=== PATIENT | female | born 1980 | race Caucasian/White ===

== ENCOUNTER 2021-10-16 15:59 | Emergency (ER) | payer OTHER ==
[~2021-10-16] VITALS: Ht 160 cm; Wt 77.3 kg
[2021-10-16] MEDS ORDERED: NALOXONE HCL 1 MG/ML SYRINGE IVP ONE (16:15)
[2021-10-16] MEDS ORDERED: RINGERS SOLUTION,LACTATED 1,000 ML IV ONE (16:15)
[2021-10-16 16:30] LABS: BASOPHILS % (AUTO) 0.5 % (0.0-2.0); EOSINOPHILS % (AUTO) 3.4 % (1.0-6.0); HEMATOCRIT 37.7 % (36-46); HEMOGLOBIN 11.8 g/dL (12.0-16.0); LYMPHOCYTES # (AUTO) 2.6 K/uL (1.0-4.8); LYMPHOCYTES % (AUTO) 34.7 % (22.0-44.0); MEAN CORPUSCULAR HEMOGLOBIN 21.2 pg (26.0-34.0); MEAN CORPUSCULAR HGB CONC 31.5 G/dL (31.0-37.0); MEAN CORPUSCULAR VOLUME 67 fL (80-100); MONOCYTES # (AUTO) 0.8 K/uL (0.1-1.0); NEUTROPHILS # (AUTO) 3.9 K/uL (1.8-7.7); NEUTROPHILS % (AUTO) 51.4 % (40.0-70.0); PLATELET COUNT (AUTO) 295 K/uL (150-450); RED BLOOD CELL COUNT(AUTO) 5.59 MIL/uL (4.00-5.20); RED CELL DISTRIBUTION WIDTH 16.6 % (11.5-14.5)
[2021-10-16] MEDS ORDERED: ONDANSETRON HCL 4 MG/2 ML VIAL IVP ONE (16:30)
[2021-10-16 16:39] LABS: ANION GAP 11 mmol/L (8-16); CALCIUM, TOTAL 8.9 mg/dL (8.8-10.5); CARBON DIOXIDE 24 mmol/L (22-29); CHLORIDE 105 mmol/L (98-107); CREATININE 0.98 mg/dL (0.60-1.30); GLOMERULAR FILTR. RATE CALC > 60 mL/min (>60); GLUCOSE,RANDOM 194 mg/dL (70-110); POTASSIUM 3.1 mmol/L (3.5-5.1); SODIUM SERUM 140 mmol/L (136-145); UREA NITROGEN, BLOOD 14 mg/dL (7-18)
[2021-10-16 17:06] LABS: ACETAMINOPHEN < 2 mcg/mL (10-30); HCG,QUANTITATIVE 2 mIU/mL (0-6)
[2021-10-16] MEDS ORDERED: POTASSIUM CHLORIDE 20 MEQ ER TABLET PO ONE (18:30)
[2021-10-16 22:57] LABS: COVID AG,FIA SOURCE NASOPHARYNGEAL
[2021-10-17 00:43] VITALS: BP 121/70
== END 2021-10-17 01:25 | disposition home or self-care (01) ==
LOC: EMS 16:01
DX: T40.601A Poisoning by unspecified narcotics, accidental (unintentional), initial encounter (principal); Z20.822 Contact with and (suspected) exposure to COVID-19; Y92.89 Other specified places as the place of occurrence of the external cause
CPT/HCPCS: 36415; 71045; 80048; 82948; 84484; 84702; 85025; 87426; 93005; 96361; 96374; 96375; 99285; G0481; J2405; J7120; G0480